=== PATIENT | male | born 1990 | race Caucasian/White ===

== ENCOUNTER 2019-02-09 06:16 | Emergency (ER) | payer BC ==
[2019-02-09] MEDS ORDERED: ACETAMINOPHEN 325 MG TAB PO ONE (06:44)
--- NOTE | 2019-02-09 06:44 | Emergency Department Record ---
History of Present Illness - General Source: Patient Mode of Arrival: Ambulatory Limitations: No limitations - History of Present Illness Initial Comments: The patient is here due to waking up 2 hours ago with L foot pain. He denies any known trauma, fall or direct injury. The patient has had no L ankle, knee or hip pain. 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 Additionally when the patient got up an hour ago to go to the bathroom he felt lightheaded briefly. There was no CP, SOB, GAYATRI, SCOTT, back pain or AP during the brief lightheadedness. Presently the patient is feeling better and feels back to normal. The patient did go out drinking last night but does not feel hung over. He has had similar episodes of lightheadedness with being hung over but does not feel he drank that much. MD Complaint: Foot injury Onset/Timin -: Hour(s) Type of Injury: Unknown Severity: Moderate Severity scale (1-10): 8 Improves With: Immobilization, Rest Worsens With: Weight bearing Associated Symptoms: Able to partially bear weight <Jason De La Cruz - Last Filed: 02/09/19 07:05> <DARLEEN TOM - Last Filed: 02/09/19 08:03> - General Chief Complaint: Ankle/Foot Injury Stated Complaint: ANKLE PAIN Time Seen by Provider: 02/09/19 06:35 - Related Data Home Medications Medication Instructions Recorded Confirmed Last Taken No Home Med [NO HOME MEDS] 02/09/19 02/09/19 Unknown Allergies Allergy/AdvReac Type Severity Reaction Status Date / Time codeine AdvReac PT UNSURE Verified 02/09/19 06:39 OF REACTION Travel Screening - Travel/Exposure Within Last 30 Days Have you traveled within the last 30 days?: No - Travel Symptoms Symptom Screening: None <Jason De La Cruz - Last Filed: 02/09/19 07:05> Review of Systems Constitutional: Denies: Chills, Fever Eyes: Denies: Eye discharge ENT: Denies: Congestion Respiratory: Denies: Cough, Dyspnea <Jason De La Cruz - Last Filed: 02/09/19 07:05> Past Medical History - SOCIAL HISTORY Smoking Status: Never smoker Alcohol Use: None Drug Use: None - RESPIRATORY Hx Respiratory Disorders: No - CARDIOVASCULAR Hx Cardio Disorders: No - NEURO Hx Neuro Disorders: No - GI Hx GI Disorders: No - Hx Genitourinary Disorders: No - ENDOCRINE Hx Endocrine Disorders: No - MUSCULOSKELETAL Hx Musculoskeletal Disorders: No - PSYCH Hx Psych Problems: No - HEMATOLOGY/ONCOLOGY Hx Hematology/Oncology Disorders: No <Jason De La Cruz Last Filed: 02/09/19 07:05> Family Medical History Any Significant Family History?: Yes Family Hx Comment (NOT TO BE USED IN PLACE OF ITEMS BELOW): Grandparent-gout Hx HTN: Father <Jason De La Cruz - Last Filed: 02/09/19 07:05> Physical Exam - General General Appearance: Alert, Oriented x3, Cooperative, No acute distress - Head Head exam: Atraumatic, Normocephalic - Eye Eye exam: Normal appearance - Neck Neck exam: Normal inspection, Full ROM. negative: Tenderness - Respiratory Respiratory exam: Normal lung sounds bilaterally. negative: Respiratory distress - Cardiovascular Cardiovascular Exam: Regular rate, Normal rhythm, Normal heart sounds - GI/Abdominal GI/Abdominal exam: Soft, Normal bowel sounds. negative: Tenderness - Extremities Extremities exam: Normal inspection (There is no L foot swelling, bruising or erythema. ), Full ROM (There is full ROM of the L hip and knee with no pain or discomfort.), Tenderness (There is mild L plantar surface tenderness over the plantar fascia.) - Neurological Neurological exam: Alert, Normal gait, Oriented X3. negative: Abnormal gait, Altered, Motor sensory deficit <Jason De La Cruz - Last Filed: 02/09/19 07:05> Course Vital Signs 02/09/19 06:27 Temperature 98.2 F Pulse Rate [ 81 Left] Respiratory 18 Rate Blood Pressure 149/81 [Left] Pulse Ox 97 - Reevaluation(s) Reevaluation #1: The patient is doing much better at this time. He is able to get up and walk with no weakness or lightheadedness. His care will be turned over to Dr. Tom at 7am due to shift change. 02/09/19 06:56 <Jason De La Cruz - Last Filed: 02/09/19 07:05> Vital Signs 02/09/19 06:27 Temperature 98.2 F Pulse Rate [ 81 Left] Respiratory 18 Rate Blood Pressure 149/81 [Left] Pulse Ox 97 - Reevaluation(s) Reevaluation #2: 02/09/19 07:16 EKG #1: 07:03 Rate: 74 Rhythm: sinus with one PAC [place]: normal Intervals: normal ST segments: normal XR is normal without acute changes or abnormalities <DARLEEN TOM - Last Filed: 02/09/19 08:03> Medical Decision Making - Lab Data Result diagrams: 02/09/19 06:48 02/09/19 06:48 <Jason De La Cruz - Last Filed: 02/09/19 07:05> - Lab Data Result diagrams: 02/09/19 06:48 02/09/19 06:48 Lab Results 02/09/19 02/09/19 Range/Units 06:48 06:48 WBC 11.8 (4.2-12.2) K/uL RBC 4.88 (4.40-5.70) M/uL Hgb 15.1 (14.0-18.0) gm/dl Hct 42.6 (42.0-52.0) % MCV 87.3 (81-97) fl MCH 30.9 (27-33) pg MCHC 35.4 (32-36) g/dl RDW 12.5 (11.5-14.5) % Plt Count 321 (130-400) K/uL MPV 9.6 (7.4-10.4) fl Gran % 71.0 (47-80) % Lymphocytes % 19.1 (16-45) % Monocytes % 6.6 (0-9) % Eosinophils % 3.0 (0-6) % Basophils % 0.3 (0-6) % Absolute Neutrophils 8.36 Sodium 139 (136-145) mmol/L Potassium 3.9 (3.4-4.5) mmol/L Chloride 101 (98-107) mmol/L Carbon Dioxide 23.0 (22-29) mmol/L Anion Gap 15.0 (7-16) BUN 12 (6-20) mg/dL Creatinine 0.8 (0.7-1.2) mg/dL Estimated GFR > 60 mL/min Random Glucose 109 (74-109) mg/dL Calcium 9.2 (8.6-10.0) mg/dL Total Bilirubin 0.30 (0.2-1.0) mg/dL ALT 29 (<41) U/L Total Protein 7.5 (6.6-8.7) g/dL <DARLEEN TOM - Last Filed: 02/09/19 08:03> Disposition Disposition: Discharge <Jason De La Cruz - Last Filed: 02/09/19 07:05> <DARLEEN TOM - Last Filed: 02/09/19 08:03> Clinical Impression: Foot pain, left Disposition: Home, Self-Care Condition: (2) Stable Instructions: Arthralgia (ED) Additional Instructions: Please drink plenty of fluids and use Tylenol or Motrin for pain. Please see a last code striper for the foot plantars wart. Please see your family doctor for a full evaluation. Forms: Patient Portal Access Quality - Blood Pressure Screening Does Patient Have Any of the Following: No Blood Pressure Classification: Pre-Hypertensive BP Reading Systolic Measurement: 149 Diastolic Measurement: 81 Screening for High Blood Pressure: < Pre-Hypertensive BP, F/U Documented > [G8950] <Jason De La Cruz - Last Filed: 02/09/19 07:05> - Quality Measures Quality Measures: N/A - Blood Pressure Screening Does Patient Have Any of the Following: No Blood Pressure Classification: Hypertensive Reading Systolic Measurement: 149 Diastolic Measurement: 73 Screening for High Blood Pressure: < Pre-Hypertensive BP, F/U Documented > [G8950] Pre-Hypertensive Follow-up Interventions: Referral to alternative/primary care provider. <DARLEEN TOM - Last Filed: 02/09/19 08:03>
[2019-02-09 06:56] LABS: ABSOLUTE NEUTROPHIL COUNT 8.36; BASO % 0.3 % (0-6); HEMATOCRIT 42.6 % (42.0-52.0); HEMOGLOBIN 15.1 gm/dl (14.0-18.0); LYMPH % 19.1 % (16-45); MEAN CELL VOLUME 87.3 fl (81-97); MEAN CORPUSCULAR HEMOGLOBIN 30.9 pg (27-33); MEAN CORPUSCULAR HGB CONC 35.4 g/dl (32-36); MEAN PLATELET VOLUME 9.6 fl (7.4-10.4); MONO % 6.6 % (0-9); PLATELET COUNT 321 K/uL (130-400); RED BLOOD COUNT 4.88 M/uL (4.40-5.70); RED CELL DISTRIBUTION WIDTH 12.5 % (11.5-14.5); WHITE BLOOD COUNT W/O DIFF 11.8 K/uL (4.2-12.2)
--- NOTE | 2019-02-09 07:09 | RADIOLOGY REPORT ---
EXAMINATION: Left Foot, Minimum Three Views EXAM DATE: 02/09/2019 7:03 AM TECHNIQUE: AP, lateral, and oblique images of the left foot obtained. INDICATION: foot pain. COMPARISON: None ENCOUNTER: Initial FINDINGS: The alignment is normal and no acute fracture is seen. No specific soft tissue abnormality is noted. IMPRESSION: Negative examination as above. Dictated by: Geovany Escalante MD on 02/09/2019 7:04 AM. .
[2019-02-09 07:10] LABS: BLOOD UREA NITROGEN 12 mg/dL (6-20); CREATININE 0.8 mg/dL (0.7-1.2); EST GLOMERULAR FILTRATION RATE > 60 mL/min
[2019-02-09 07:11] LABS: TOTAL PROTEIN 7.5 g/dL (6.6-8.7)
[2019-02-09 07:13] LABS: GLUCOSE,RANDOM 109 mg/dL (74-109)
[2019-02-09 07:15] LABS: ALT/SGPT 29 U/L (<41)
[2019-02-09 07:16] LABS: ALKALINE PHOSPHATASE 57 U/L (40-129); AST/SGOT 21 U/L (10.0-50.0)
== END 2019-02-09 07:31 | disposition home or self-care (01) ==
LOC: ER 06:16
DX: M79.672 Pain in left foot (principal); R42 Dizziness and giddiness
CPT/HCPCS: 80053; 85025; 93005; 93010; 99284